=== PATIENT | female | born 1955 | race American Indian/Alaskan Native ===

== ENCOUNTER 2016-12-08 08:50 | Inpatient (IN) | payer MEDICAID ==
[2016-12-08 10:03] LABS: Basophils % (Auto) 0.9 % (0.0-1.8); Eosinophils % (Auto) 3.3 % (0.0-4.3); Hematocrit 40.1 % (30.3-42.9); Hemoglobin 13.2 gm/dl (10.1-14.3); Mean Corpuscular HGB Conc 33 % (30-34); Mean Corpuscular Hemoglobin 29 pg (28-32); Mean Corpuscular Volume 87 fl (79-97); Platelet Count 297 K/mm3 (140-440); Red Cell Distribution Width 14.4 % (13.2-15.2); White Blood Count 6.2 K/mm3 (4.5-11.0)
[2016-12-08 10:19] LABS: Anion Gap 17 mmol/L; Blood Urea Nitrogen 6 mg/dL (7-17); Calcium 8.5 mg/dL (8.4-10.2); Carbon Dioxide 25 mmol/L (22-30); Chloride 102.3 mmol/L (98-107); Glucose 124 mg/dL (65-100); Potassium 3.7 mmol/L (3.6-5.0); Sodium 141 mmol/L (137-145)
[2016-12-08] MEDS ORDERED: NACL 0.9% 1000 ML 1,000 ML ONE (10:20)
[2016-12-08] MEDS ORDERED: ROCEPHIN/NS 1 GM/50 ML 1 GM/50 ML BAG IV ONE ×2 (10:20→10:22)
[2016-12-08] MEDS ORDERED: NACL 0.9% 1000 ML IV ONE (10:22)
[2016-12-08] MEDS ORDERED: PROVENTIL IH ONE (10:22)
[2016-12-08] MEDS ORDERED: ATROVENT IH ONE (10:22)
--- NOTE | 2016-12-08 10:31 | Emergency Department Report ---
HPI - General Chief Complaint: Adult Asthma Time Seen by Provider: 12/08/16 10:15 - HPI HPI: Chief complaint: Shortness of breath and productive cough HPI: Patient is 61-year-old female with a history of asthma, COPD, 1 intubation 2 years ago and history of pneumonia presents with a weeklong history of shortness of breath, wheezing and coughing up green sputum. Questionable fever , patient states she's had some episodes of sweating and chills. Patient continues to smoke intermittently. Patient denies nausea, vomiting or diarrhea. Patient denies chest pain. Patient was given an albuterol treatment , Solu-Medrol 125 mg IV and 2 g of magnesium sulfate IV by EMS prior to arrival. Mode of arrival: EMS Source: Patient, old chart Began: One week ago Duration: Gradually worsening over the last 2 days Context: Patient has been using her nebulizer treatments at home but just continued to get worse so she decided to come to the emergency department Quality: No pain Severity: 0 out of 10 Improved with: Nebulizer Worsened with: Nothing Associated signs and symptoms: See above ED Past Medical Hx - Past Medical History Hx Hypertension: Yes Hx GERD: Yes Hx Asthma: Yes Hx COPD: Yes Additional medical history: HIGH CHOLESTEROL - Social History Smoking Status: Current Some Day Smoker Substance Use Type: None - Medications Home Medications: Home Medications Medication Instructions Recorded Confirmed Last Taken Type Diltiazem Cd [Cardizem CD] 180 mg PO QDAY #30 cap 08/26/15 12/08/16 12/08/16 Rx ALBUTEROL Inhaler [ProAir HFA 2 puff IH QID PRN #1 inhalation 12/16/15 12/08/16 12/08/16 Rx Inhaler] Potassium Chloride [Klor-Con 10] 20 meq PO QDAY 12/16/15 12/08/16 12/08/16 History Budesoni/Formotero 160-4.5(Nf) 2 puff IH BID #1 inha 12/30/15 12/08/16 12/08/16 Rx [Symbicort 160-4.5 (Nf)] ED Review of Systems ROS: Stated complaint: JAVY Other details as noted in HPI ROS Constitutional: No fever ENT: No uri symptoms Cardiovascular: No chest pain Respiratory: See HPI GI: No nausea vomiting or diarrhea : No dysuria frequency or urgency, Skin: No rash Neuro: No focal weakness or numbness Psych: No depression Shawn/lymph: No edema Physical Exam - Physical Exam Vital Signs: Vital Signs 12/08/16 09:03 Temperature 97.7 F Pulse Rate 103 H Respiratory 22 Rate Blood Pressure 159/85 [Left] O2 Sat by Pulse 95 Oximetry Physical Exam: GENERAL: The patient is well-developed well-nourished . Patient with mild respiratory distress and frequent coughing episodes. HEENT: Normocephalic. Atraumatic. Extraocular motions are intact. Patient has moist mucous membranes. NECK: Supple. No meningitic signs are noted. There is no adenopathy noted. CHEST/LUNGS: Bilateral expiratory wheezes and diminished throughout. There is mild to moderate respiratory distress noted. HEART/CARDIOVASCULAR: Regular. There is tachycardia. There is no gallop rub or murmur. ABDOMEN: Abdomen is soft, nontender. Patient has normal bowel sounds. There is no abdominal distention. SKIN: There is no rash. There is no edema. There is no diaphoresis. NEURO: The patient is awake, alert, and oriented. The patient is cooperative. The patient has no focal neurologic deficits. The patient has normal speech. MUSCULOSKELETAL: There is no tenderness or deformity. There is no limitation range of motion. There is no evidence of acute injury. ED Course Vital Signs 12/08/16 09:03 Temperature 97.7 F Pulse Rate 103 H Respiratory 22 Rate Blood Pressure 159/85 [Left] O2 Sat by Pulse 95 Oximetry - Reevaluation(s) Reevaluation #1: 12/08/16 10:33 Patient will be given an hour-long nebulizer treatment and a liter of normal saline along with 1 g of IV Rocephin. ED Medical Decision Making - Lab Data Result diagrams: 12/08/16 09:56 12/08/16 09:56 Laboratory Tests 12/08/16 09:56 Lactic Acid 2.5 H* - Radiology Data interpreted by me: Chest x-ray consistent with COPD. Critical care attestation.: If time is entered above; I have spent that time in minutes in the direct care of this critically ill patient, excluding procedure time. ED Disposition Clinical Impression: Acute exacerbation of COPD with asthma Acute bronchitis Qualifiers: Bronchitis organism: unspecified organism Qualified Code(s): J20.9 - Acute bronchitis, unspecified Disposition: OP ADMITTED IP TO THIS HOSP Is pt being admited?: Yes Does the pt Need Aspirin: Yes Condition: Fair Instructions: Chronic Obstructive Pulmonary Disease (ED), Acute Bronchitis (ED) Referrals: PRIMARY CARE,MD [Primary Care Provider] - 3-5 Days Time of Disposition: 11:39 (admit to the hospitalist)
--- NOTE | 2016-12-08 11:07 | Admit Criteria Form ---
Admission Criteria Documentation: COPD Clinical Indications for Admission to Inpatient Care (Place 'X' for any and all applicable criteria): Admission is indicated for ANY ONE of the following (1)(2)(3): [X ]I. Acute exacerbation by high-risk comorbidity (e.g., pneumonia, dysrhythmia, heart failure, pleural effusion, pneumothorax) or severe underlying COPD (e.g., steroid dependent) [ X]II. Inpatient admission required rather than observation care (see Chronic Obstructive Pulmonary Disease: Observation Care) because of ANY ONE of the following: [X ]a) New or pre-existing signs or symptoms of COPD (eg, dyspnea or Tachypnea at rest or with minimal activity) that persist despite outpatient and observation care treatment [ ]b) New-onset hypoxemia (room air SaO2 less than 90%, PO2 less than 60 mm Hg (8.0 kPa)) that persists despite outpatient and observation care treatment [ ]c) Worsening of pre-existing hypoxemia (eg, new or increased requirement for supplemental oxygen to maintain oxygenation at baseline level) that persists despite outpatient and observation care treatment, with oxygen treatment needs performable only in acute inpatient setting [ ]d) Hypercarbia (PCO2 greater than 40 mm Hg (5.3 kPa))-induced respiratory acidosis (pH less than 7.35) that persists despite outpatient and observation care treatment [ ]e) Supplemental oxygen or respiratory treatments for over 24 hours that are performable only in acute inpatient setting [ ]f) Chest tube placement with active evacuation (e.g., suction, drainage) (5) [ ]g) Other condition, treatment or monitoring requiring inpatient admission [ ]III. Planned invasive surgical or diagnostic procedures requiring acute- care hospitalization [ ]IV. Acute respiratory failure (e.g., uncompensated hypercarbia, severe hypoxemia) [ ]V. Severe comorbid condition (e.g., severe steroid myopathy, acute vertebral fracture) that has acutely worsened pulmonary function [ ]. Confusion state, lethargy, obtundation, stupor or coma Extended stay beyond goal length of stay may be needed for (31)(32): [ ]a ) Respiratory Failure. [ ]b) Severe or persisting hypoxemia or hypercarbia [ ]c) Severe or persistent dyspnea [ ]d) Comorbidities (e.g. chronic heart failure, atrial fibrillation with rapid response, pneumonia) [ ]e) Malnutrition The original [facility] content created by [facility] has been revised. The portions of the content which have been revised are identified through the use of italic text or in bold, and [facility] has neither reviewed nor approved the modified material. All other unmodified content is copyright [facility]. Please see references footnoted in the original [facility] edition 2016 Admission Criteria Met: Yes
--- NOTE | 2016-12-08 11:30 | XRay Report ---
CHEST 2 VIEWS: INDICATION: Shortness of breath. COMPARISON: 12/28/2015 FINDINGS: Frontal and lateral chest radiographs, 3 images, somewhat limited due to motion, though again demonstrate normal cardiomediastinal silhouette and grossly clear, well-expanded lungs. No large pleural effusions or CHF. Slight aortic knob calcifications. Demineralized bones with multilevel thoracic spondylosis. CONCLUSION: No definite acute chest process or significant interval change on this technically limited exam, as described. Please correlate. Thank you for the opportunity to participate in this patient's care.
[2016-12-08] MEDS ORDERED: ASPIRIN PO ONE (11:50)
[2016-12-08] MEDS ORDERED: TYLENOL PO PRN (11:59)
[2016-12-08] MEDS ORDERED: HABITROL TD ONE (12:10)
[2016-12-08] MEDS ORDERED: PROVENTIL IH PRN (12:10)
--- NOTE | 2016-12-08 12:10 | History and Physical Report ---
History of Present Illness Date of examination: 12/08/16 Chief complaint: Sob History of present illness: Patient is a 61 you woman with a history of copd, tobacco dependancy, hthn, dlp and GERD who presents with severe constant worsening progressive sob without aggravating or relieving factors associated with wheezing, worsening greenish yellow productive cough. Her symptoms started 2 days ago, now she has sob at rest. She denies cp, severe headaches, n/v abdominal pains, fevers or chills. Her nebulizer wasn't helping. Her PCP is Dr. Hahn and Injector Assembler is Dr. Trejo. Past History Past Medical History: other (as hpi) Past Surgical History: No surgical history, Other Social history: , smoking, full code. denies: alcohol abuse, prescription drug abuse, IV drug use Family history: no significant family history (she denies any lung cancer, diabetes, hypertension) Medications and Allergies Allergies Allergy/AdvReac Type Severity Reaction Status Date / Time No Known Allergies Allergy Verified 12/16/15 05:40 Home Medications Medication Instructions Recorded Confirmed Last Taken Type Diltiazem Cd [Cardizem CD] 180 mg PO QDAY #30 cap 08/26/15 12/08/16 12/08/16 Rx ALBUTEROL Inhaler [ProAir HFA 2 puff IH QID PRN #1 inhalation 12/16/15 12/08/16 12/08/16 Rx Inhaler] Potassium Chloride [Klor-Con 10] 20 meq PO QDAY 12/16/15 12/08/16 12/08/16 History Budesoni/Formotero 160-4.5(Nf) 2 puff IH BID #1 inha 12/30/15 12/08/16 12/08/16 Rx [Symbicort 160-4.5 (Nf)] Active Meds: Active Medications Acetaminophen (Tylenol) 650 mg PO Q6H PRN PRN Reason: Non Cardiac Pain or Temp>100.5 Acetaminophen/Hydrocodone Bitart ([address] 5/325) 1 each PO Q4H PRN PRN Reason: Pain, Moderate (4-6) Enoxaparin Sodium (Lovenox) 40 mg SUB-Q QDAY [facility] Sodium Chloride (Nacl 0.45% 1000 Ml) mls @ 100 mls/hr IV DIRECT [facility] Azithromycin 500 mg/ Sodium (Chloride) 250 mls @ 250 mls/hr IV Q24HR [facility] Ceftriaxone Sodium (Rocephin/Ns 1 Gm/50 Ml) mls @ 100 mls/hr IV Q24HR [facility] PRN Reason: Protocol Methylprednisolone Sodium Succinate (Solu-Medrol) 40 mg IV Q8HR [facility] Pantoprazole Sodium (Protonix) 40 mg PO QDAY [facility] Zolpidem Tartrate (Ambien) 5 mg PO QHS PRN PRN Reason: Sleep Review of Systems All systems: negative (as HPI and all other ROS reviewed and negative.) Exam - Physical Exam Narrative exam: GEN: WDWN, NAD, AWAKE, ALERT, ORIENTATED 3 HEENT: NCAT, PERRL, EOMI, OP CLEAR NECK: SUPPLE, NO THYROMEGALY, NO JVD, NO LAD CVS: Tachycardic, NORMAL S1S2 LUNGS/CHEST: Bilateral rhonchi with wheezing NORMAL CHEST EXPANSION B, diminished AIR ENTRY B, reduced breath sounds ABD: SOFT NTND, GBS, NO REBOUND OR GUARDING EXT/SKIN: NO SIGNIFICANT EDEMA OR RASH MSK: FROM X 4 EXTREMITIES NEURO: CN 2-12 GROSSLY INTACT, NO FOCAL DEFICITS PSY: CALM - Constitutional Vitals: Temp Pulse Resp BP Pulse Ox 97.7 F 90 20 159/85 94 12/08/16 09:03 12/08/16 10:42 12/08/16 10:42 12/08/16 10:31 12/08/16 10:31 Results - Labs CBC & Chem 7: 12/08/16 09:56 12/08/16 09:56 Labs: Abnormal lab results 12/08/16 12/08/16 12/08/16 Range/Units 09:56 09:56 09:56 Lymph # 0.8 L (1.2-5.4) K/mm3 Seg Neutrophils % 79.2 H (40.0-70.0) % BUN 6 L (7-17) mg/dL Creatinine 0.6 L (0.7-1.2) mg/dL Glucose 124 H (65-100) mg/dL Lactic Acid 2.5 H* (0.7-2.0) mmol/L - Imaging and Cardiology Chest x-ray: report reviewed Assessment and Plan Patient is a 61 you woman with a history of copd, tobacco dependancy, hthn, dlp and GERD who presents with severe constant worsening progressive sob without aggravating or relieving factors associated with wheezing, worsening greenish yellow productive cough. Her symptoms started 2 days ago, now she has sob at rest. She denies cp, severe headaches, n/v abdominal pains, fevers or chills. Her nebulizer wasn't helping. Her PCP is Dr. Hahn and Injector Assembler is Dr. Trejo. 1. Acute exacerbation COPD with acute on chronic aspiration pneumonitis: Treat with IV antibiotics, IV steroids, nebs, consult her research associate quality control qc 2. Sepsis: Blood cultures, IV fluids and IV antibiotics 3. Tobacco dependency: Controls Design Engineer on stopping, give nicotine patch 4. Hypertension, chronic and worsening: treat the sob 5. DVT prophylaxis: SCDs and subcutaneous Lovenox Full code Disposition: Inpatient care
[2016-12-08] MEDS ORDERED: ECOTRIN PO ONE (15:08)
[2016-12-08] MEDS: DUONEB 0.5 MG-3 MG/3 ML SOLN IH SCH ×2 (16:44→20:45)
[2016-12-08] MEDS: NACL 0.45% 1000 ML 1,000 ML IV SCH (16:55)
[2016-12-08] MEDS: NORCO 5/325 PO PRN (22:14)
[2016-12-08] MEDS: AMBIEN PO PRN (22:16)
[2016-12-09 05:42] LABS: Hematocrit 37.8 % (30.3-42.9); Hemoglobin 12.3 gm/dl (10.1-14.3); Mean Corpuscular HGB Conc 33 % (30-34); Mean Corpuscular Hemoglobin 28 pg (28-32); Mean Corpuscular Volume 86 fl (79-97); Platelet Count 283 K/mm3 (140-440); Red Cell Distribution Width 14.4 % (13.2-15.2); White Blood Count 10.4 K/mm3 (4.5-11.0)
[2016-12-09 05:50] LABS: Anion Gap 16 mmol/L; BUN/Creatinine Ratio 13.33; Blood Urea Nitrogen 8 mg/dL (7-17); Calcium 8.7 mg/dL (8.4-10.2); Carbon Dioxide 23 mmol/L (22-30); Chloride 102.4 mmol/L (98-107); Glucose 141 mg/dL (65-100); Potassium 4.2 mmol/L (3.6-5.0); Sodium 137 mmol/L (137-145)
[2016-12-09] MEDS: PULMICORT IH SCH ×2 (09:25→20:40)
[2016-12-09] MEDS: BROVANA NEBU IH SCH ×2 (09:25→20:42)
[2016-12-09] MEDS: DUONEB 0.5 MG-3 MG/3 ML SOLN IH SCH ×4 (09:25→20:42)
--- NOTE | 2016-12-09 09:54 | Progress Note ---
Assessment and Plan Assessment and plan: Acute respiratory failure secondary to COPD exacerbation. Continue supplemental oxygen. Pulmonology following Copd exacerbation. Solu-Medrol IV every 8 hours, DuoNeb. Hypertension. She is on Cardizem CD. Smoking. I discussed with her importance of quitting smoking. Nicotine patch daily Obesity. I discussed with her importance of losing weight. Full CODE STATUS History Interval history: Less shortness of breath, Cough improving, No chest pain Hospitalist Physical - Constitutional Vitals: Temp Pulse Resp BP Pulse Ox 97.7 F 76 16 169/73 94 12/09/16 08:00 12/09/16 09:25 12/09/16 09:25 12/09/16 08:00 12/09/16 08:00 General appearance: Present: no acute distress - EENT Eyes: Present: PERRL ENT: hearing intact - Neck Neck: Present: supple, normal ROM - Respiratory Respiratory effort: normal Respiratory: bilateral: diminished, rhonchi, wheezing - Cardiovascular Rhythm: regular Heart Sounds: Present: S1 & S2 (S1-S2 regular, no murmurs rubs or gallops) - Extremities Extremities: no ischemia, No edema, normal temperature, normal color - Abdominal General gastrointestinal: soft, non-tender, non-distended, normal bowel sounds - Integumentary Integumentary: Present: clear, warm, dry - Psychiatric Psychiatric: appropriate mood/affect - Neurologic Neurologic: moves all extremities, other (AAO x 3) Results - Labs CBC & Chem 7: 12/09/16 05:12 12/09/16 05:12 Labs: Laboratory Last Values WBC 10.4 K/mm3 (4.5-11.0) 12/09/16 05:12 RBC 4.40 M/mm3 (3.65-5.03) 12/09/16 05:12 Hgb 12.3 gm/dl (10.1-14.3) 12/09/16 05:12 Hct 37.8 % (30.3-42.9) 12/09/16 05:12 MCV 86 fl (79-97) 12/09/16 05:12 MCH 28 pg (28-32) 12/09/16 05:12 MCHC 33 % (30-34) 12/09/16 05:12 RDW 14.4 % (13.2-15.2) 12/09/16 05:12 Plt Count 283 K/mm3 (140-440) 12/09/16 05:12 Lymph % (Auto) 13.5 % (13.4-35.0) 12/08/16 09:56 Orange % (Auto) 3.1 % (0.0-7.3) 12/08/16 09:56 Eos % (Auto) 3.3 % (0.0-4.3) 12/08/16 09:56 Baso % (Auto) 0.9 % (0.0-1.8) 12/08/16 09:56 Lymph # 0.8 K/mm3 (1.2-5.4) L 12/08/16 09:56 Orange # 0.2 K/mm3 (0.0-0.8) 12/08/16 09:56 Eos # 0.2 K/mm3 (0.0-0.4) 12/08/16 09:56 Baso # 0.1 K/mm3 (0.0-0.1) 12/08/16 09:56 Seg Neutrophils % 79.2 % (40.0-70.0) H 12/08/16 09:56 Seg Neutrophils # 4.9 K/mm3 (1.8-7.7) 12/08/16 09:56 Sodium 137 mmol/L (137-145) 12/09/16 05:12 Potassium 4.2 mmol/L (3.6-5.0) 12/09/16 05:12 Chloride 102.4 mmol/L (98-107) 12/09/16 05:12 Carbon Dioxide 23 mmol/L (22-30) 12/09/16 05:12 Anion Gap 16 mmol/L 12/09/16 05:12 BUN 8 mg/dL (7-17) 12/09/16 05:12 Creatinine 0.6 mg/dL (0.7-1.2) L 12/09/16 05:12 Estimated GFR > 60 ml/min 12/09/16 05:12 BUN/Creatinine Ratio 13.33 % 12/09/16 05:12 Glucose 141 mg/dL (65-100) H 12/09/16 05:12 Lactic Acid 2.5 mmol/L (0.7-2.0) H* 12/08/16 09:56 Calcium 8.7 mg/dL (8.4-10.2) 12/09/16 05:12
[2016-12-09] MEDS ORDERED: NON-FORMULARY (Budesoni/Formotero 160-4.5(Nf) 2 PUFF) IH SCH (10:00)
[2016-12-09] MEDS ORDERED: NON-FORMULARY (Potassium Chloride [Klor-Con 10] 20 MEQ) PO SCH (10:00)
[2016-12-09] MEDS ORDERED: ZITHROMAX 500 MG in NACL 0.9% 250ML 250 ML IV SCH (10:00)
[2016-12-09] MEDS ORDERED: ROCEPHIN/NS 1 GM/50 ML 1 GM/50 ML BAG IV SCH (10:00)
[2016-12-09] MEDS: CARDIZEM CD PO SCH (10:30)
[2016-12-09] MEDS: PROTONIX PO SCH (10:30)
[2016-12-09] MEDS: K-DUR PO SCH (11:13)
[2016-12-09] MEDS ORDERED: BENADRYL IV PRN (13:10)
--- NOTE | 2016-12-09 16:02 | Consultation ---
History of Present Illness Consult date: 12/09/16 Requesting physician: NIC RODRIGUEZ Reason for consult: COPD History of present illness: 61 y/o woman, with known obstructive lung disease, followed by Dr. Trejo, admitted with exacerbation, acute. Per patient, went to work and was exposed to an individual with a URI. A few days later she began coughing up clear phelgm with continued wheezing. Currently undergoing neb treatment now. Per patient feels better. No family at bedside Past History Past Medical History: other (as hpi) Past Surgical History: No surgical history, Other Social history: , smoking, full code. denies: alcohol abuse, prescription drug abuse, IV drug use Family history: no significant family history (she denies any lung cancer, diabetes, hypertension) Medications and Allergies Allergies Allergy/AdvReac Type Severity Reaction Status Date / Time azithromycin [From Zithromax] Allergy Shortness Verified 12/09/16 14:19 of Breath Home Medications Medication Instructions Recorded Confirmed Last Taken Type Diltiazem Cd [Cardizem CD] 180 mg PO QDAY #30 cap 08/26/15 12/08/16 12/08/16 Rx ALBUTEROL Inhaler [ProAir HFA 2 puff IH QID PRN #1 inhalation 12/16/15 12/08/16 12/08/16 Rx Inhaler] Potassium Chloride [Klor-Con 10] 20 meq PO QDAY 12/16/15 12/08/16 12/08/16 History Budesoni/Formotero 160-4.5(Nf) 2 puff IH BID #1 inha 12/30/15 12/08/16 12/08/16 Rx [Symbicort 160-4.5 (Nf)] Active Meds: Active Medications Acetaminophen (Tylenol) 650 mg PO Q6H PRN PRN Reason: Non Cardiac Pain or Temp>100.5 Acetaminophen/Hydrocodone Bitart ([place] 5/325) 1 each PO Q4H PRN PRN Reason: Pain, Moderate (4-6) Last Admin: 12/08/16 22:14 Dose: 1 each Albuterol (Proventil) 2.5 mg IH Q4HRT PRN PRN Reason: Shortness Of Breath Albuterol/Ipratropium (Duoneb 0.5 Mg-3 Mg/3 Ml Soln) 1 ampul IH QIDRT [facility] Last Admin: 12/09/16 15:54 Dose: 1 ampul Arformoterol Tartrate (Brovana Nebu) 15 mcg IH Q12HRT [facility] Last Admin: 12/09/16 09:25 Dose: Not Given Budesonide (Pulmicort) 1 mg IH Q12HRT [facility] Last Admin: 12/09/16 09:25 Dose: Not Given Diltiazem HCl (Cardizem Cd) 180 mg PO QDAY [facility] Last Admin: 12/09/16 10:30 Dose: 180 mg Diphenhydramine HCl (Benadryl) 25 mg IV Q6H PRN PRN Reason: Itching Last Admin: 12/09/16 13:18 Dose: 25 mg Enoxaparin Sodium (Lovenox) 40 mg SUB-Q QDAY [facility] Sodium Chloride (Nacl 0.45% 1000 Ml) 1,000 mls @ 100 mls/hr IV DIRECT [facility] Last Admin: 12/08/16 16:55 Dose: 100 mls/hr Methylprednisolone Sodium Succinate (Solu-Medrol) 40 mg IV Q8HR [facility] Last Admin: 12/09/16 13:47 Dose: 40 mg Pantoprazole Sodium (Protonix) 40 mg PO QDAY [facility] Last Admin: 12/09/16 10:30 Dose: 40 mg Potassium Chloride (K-Dur) 20 meq PO QDAY [facility] Last Admin: 12/09/16 11:13 Dose: 20 meq Zolpidem Tartrate (Ambien) 5 mg PO QHS PRN PRN Reason: Sleep Last Admin: 12/08/16 22:16 Dose: 5 mg Physical Examination Vital signs: Vital Signs Temp Pulse Resp BP Pulse Ox 97.7 F 103 H 22 159/85 95 12/08/16 09:03 12/08/16 09:03 12/08/16 09:03 12/08/16 09:03 12/08/16 09:03 General appearance: no acute distress, alert Eyes: non-icteric ENT: oropharynx moist Effort: normal Ascultation: Bilateral: wheezes (more predominant in lower lung zones) Percussion: Bilateral: not dull Tactile fremitus: Bilateral: normal Cardiovascular: regular rate and rhythm Results - Laboratory Findings CBC and BMP: 12/09/16 05:12 12/09/16 05:12 Abnormal lab findings: Abnormal Labs 12/09/16 05:12 Creatinine 0.6 L Glucose 141 H - Diagnostic Findings Chest x-ray: image reviewed (clear cxr, evidence of airtrapping/hyperinflation, consistent with obstructive lung disease) Assessment and Plan 61 y/o female with acute exacerbation of obstructive lung disease. 1. Agree with IV steroids 2. Continue pulmicort and brovana 3. PRN neb treatments as well 4. Will continue to follow with you, hopeful discharge in the next 24-48 hours.
[2016-12-09] MEDS ORDERED: MILK OF MAGNESIA PO PRN (19:03)
[2016-12-09] MEDS: NACL 0.45% 1000 ML 1,000 ML IV SCH (20:36)
[2016-12-09] MEDS: NORCO 5/325 PO PRN (20:36)
[2016-12-09] MEDS: AMBIEN PO PRN (22:02)
[2016-12-09] MEDS: LOVENOX SUB-Q SCH (22:02)
[2016-12-10] MEDS: NACL 0.45% 1000 ML 1,000 ML IV SCH (06:25)
[2016-12-10] MEDS: DUONEB 0.5 MG-3 MG/3 ML SOLN IH SCH ×2 (08:36→16:24)
[2016-12-10] MEDS: PULMICORT IH SCH (08:44)
--- NOTE | 2016-12-10 10:38 | Discharge Summary ---
Providers - Providers Date of Admission: 12/08/16 11:57 Date of discharge: 12/10/16 Attending physician: VASU GUADALUPE 12/08/16 12:01 Consult to Physician [CONS] Routine Consulting Provider: SKINNY DAVIDSON Reason For Exam: copd ex, pt known to you Place consult to:: Maya FLORES Notified:: y Was contact made?: Yes If yes, spoke with:: storm office Time called:: 12:20 Primary care physician: METER MAKER Hospitalization Condition: Good Hospital course: Patient is 61-year-old with history of COPD, hypertension. She presented with shortness of breath. She was diagnosed with COPD exacerbation. And was admitted for further management. She was put on Solu-Medrol and DuoNeb. Machine Brusher was consulted and she was evaluated. She improved over the next 2 days. She was evaluated on 12/10/2016. Shortness of breath had resolved , so was stable and discharged home to follow as an outpatient. Total time spent on discharge 32 minutes Disposition: DISCHARGED TO HOME OR SELFCARE - Discharge Diagnoses (1) Acute respiratory failure Status: Acute Qualifiers: Respiratory failure complication: hypoxia Qualified Code(s): J96.01 - Acute respiratory failure with hypoxia (2) COPD with acute exacerbation Status: Acute (3) HTN (hypertension) Status: Chronic Qualifiers: Hypertension type: H (4) Obesity (BMI 30-39.9) Status: Chronic Core Measure Documentation - Palliative Care Palliative Care/ Comfort Measures: Not Applicable - Core Measures Any of the following diagnoses?: none Exam - Constitutional Vitals: Temp Pulse Resp BP Pulse Ox 97.8 F 84 20 161/93 96 12/10/16 08:00 12/10/16 08:00 12/10/16 08:00 12/10/16 08:00 12/10/16 08:00 Plan Activity: no restrictions Diet: low fat, low cholesterol, low salt Special Instructions: smoking cessation Additional Instructions: 1.Follow up with PCP in 1 week. 2.Follow up with Dr. Trejo in 1 week Follow up with: PRIMARY CAREMD [Primary Care Provider] - 3-5 Days Prescriptions: ALBUTEROL Inhaler [ProAir HFA Inhaler] 2 puff IH QID PRN #1 inhalation PRN Reason: Shortness Of Breath Hydralazine HCl [Apresoline TAB] 50 mg PO Q8HR #90 tab Nicotine [Habitrol] 14 mg TD DAILY #30 patch
[2016-12-10] MEDS: LOVENOX SUB-Q SCH (11:16)
[2016-12-10] MEDS: K-DUR PO SCH (11:16)
[2016-12-10] MEDS: PROTONIX PO SCH (11:16)
[2016-12-10] MEDS: CARDIZEM CD PO SCH (11:17)
[2016-12-10 11:18] VITALS: BP 160/90
--- NOTE | 2016-12-10 11:32 | Progress Note ---
Assessment and Plan 61 y/o female with acute exacerbation of obstructive lung disease. 1. Prednisone taper at discharge 2. Resume home medication regimen 3. No objection to discharge from pulmonary standpoint Subjective Date of service: 12/10/16 Interval history: Patient improved. Feels better. Going home today. Already dressed. Objective Vital Signs - 12hr 12/10/16 12/10/16 12/10/16 00:19 08:00 11:17 Temperature 97.9 F 97.8 F Pulse Rate 84 Pulse Rate [ 76 84 Right Radial] Respiratory 20 20 Rate Blood Pressure 160/90 Blood Pressure 145/1 161/93 [Left Arm] O2 Sat by Pulse 94 96 Oximetry Constitutional: no acute distress, alert Eyes: non-icteric ENT: oropharynx moist Effort: normal Ascultation: Bilateral: wheezes (more predominant in lower lung zones) Percussion: Bilateral: not dull Tactile fremitus: Bilateral: normal Cardiovascular: regular rate and rhythm CBC and BMP: 12/09/16 05:12 12/09/16 05:12 Abnormal lab findings: Abnormal Labs 12/09/16 05:12 Creatinine 0.6 L Glucose 141 H
[2016-12-10] MEDS: BROVANA NEBU IH SCH (16:24)
== END 2016-12-10 12:50 | disposition home or self-care (01) | DRG 871 ==
LOC: ED 08:50 → 3A 11:57
PROVIDERS: ADMIT Internal Medicine; ATTEND Internal Medicine
DX: A41.9 Sepsis, unspecified organism (principal); J69.0 Pneumonitis due to inhalation of food and vomit; J96.01 Acute respiratory failure with hypoxia; J44.1 Chronic obstructive pulmonary disease with (acute) exacerbation; I10 Essential (primary) hypertension; E66.9 Obesity, unspecified; K21.9 Gastro-esophageal reflux disease without esophagitis; F17.200 Nicotine dependence, unspecified, uncomplicated; Z68.35 Body mass index [BMI] 35.0-35.9, adult; Z71.6 Tobacco abuse counseling
CPT/HCPCS: 36415; 71020; 80048; 82140; 85025; 85027; 87040; 94640; 96365; 99406; J0456; J0696; J1200; J1650; J2920; J7030; J7050

== ENCOUNTER 2017-06-06 09:16 | Outpatient (CLI) | payer MEDICAID ==
--- NOTE | 2017-06-06 10:46 | Mammography Report ---
Screening mammogram: No recent prior exams. Prior left breast surgery for benign findings. A scar marker is placed with mild distortion beneath the scar marker in the anterior superior left breast. The remainder of the breast pattern is heterogeneous, symmetric, and otherwise unremarkable for any significant findings. CAD used. Impression: Benign pattern. Recommendation: Annual mammogram followup. BI-RADS CATEGORY: 1 = Negative ACR BI-RADS MAMMOGRAPHIC CODES: 0 = Needs additional imaging evaluation; 1 = Negative; 2 = Benign; 3 = Probably benign; 4 = Suspicious; 5 = Malignant; 6 = Known biopsy-proven malignancy COMMENT: 1. Dense breast tissue, i.e., adenosis, fibrocystic changes, etc., may obscure an underlying neoplasm. 2. Approximately 10% of cancers are not detected with mammography. 3. A negative mammography report should not delay biopsy if a clinically suspicious mass is present.
== END 2017-06-06 09:17 | disposition home or self-care (01) ==
LOC: MAMMO 09:16
PROVIDERS: ATTEND Internal Medicine
DX: Z12.31 Encounter for screening mammogram for malignant neoplasm of breast (principal); I10 Essential (primary) hypertension; E78.00 Pure hypercholesterolemia, unspecified; J44.9 Chronic obstructive pulmonary disease, unspecified; J45.909 Unspecified asthma, uncomplicated; F32.9 Major depressive disorder, single episode, unspecified; F17.200 Nicotine dependence, unspecified, uncomplicated
CPT/HCPCS: 77067; G0202

== ENCOUNTER 2017-09-20 10:27 | Day surgery (SDC) | payer MEDICAID ==
[2017-09-20] MEDS ORDERED: ANCEF/STERILE WATER 2 GM/20 ML IV NR (13:00)
--- NOTE | 2017-09-20 13:10 | Anesthesia Consultation ---
Anesthesia Consult and Med Hx Date of service: 09/20/17 - Airway Anesthetic Teeth Evaluation: Poor (multiple missing teeth) ROM Head & Neck: Adequate Mental/Hyoid Distance: Adequate Mallampati Class: Class II Intubation Access Assessment: Probably Good - Pre-Operative Health Status ASA Pre-Surgery Classification: ASA3 Proposed Anesthetic Plan: General - Pulmonary Hx Smoking: Yes (for over 30 years) Hx Asthma: Yes Hx Respiratory Symptoms: No SOB: Yes COPD: Yes (uses inhalers daily) Hx Pneumonia: No Hx Sleep Apnea: No - Cardiovascular System Hx Hypertension: Yes (15 years) Hx Coronary Artery Disease: No (high cholesterol) Hx Heart Attack/AMI: No Hx Cardia Arrhythmia: Yes (h/o SVT) - Central Nervous System CVA: No Hx Psychiatric Problems: No - Gastrointestinal Hx Gastroesophageal Reflux Disease: No - Endocrine Hx Renal Disease: No Hx End Stage Renal Disease: No Hx Non-Insulin Dependent Diabetes: No Hx Thyroid Disease: No - Other Systems Hx Alcohol Use: Yes (occa) Hx Substance Use: No Hx Cancer: No Hx Obesity: Yes (BMI 35.5)
--- NOTE | 2017-09-20 13:12 | Anesthesia Day of Surgery ---
Anesthesia Day of Surgery - Day of Surgery Patient Examined: Yes Patient H&P Reviewed: Yes Patient is NPO: Yes
[2017-09-20] MEDS ORDERED: PROAIR IH NR (13:15)
[2017-09-20 13:35] LABS: Hematocrit 41.9 % (30.3-42.9); Hemoglobin 13.5 gm/dl (10.1-14.3)
[2017-09-20] MEDS ORDERED: MARCAINE 0.5% 30 ML INFILTRATI ONE (13:59)
[2017-09-20] MEDS ORDERED: PEPCID IV NR (14:00)
[2017-09-20] MEDS ORDERED: ZOFRAN ONE ×2 (14:00→17:33)
[2017-09-20] MEDS ORDERED: ROBINUL ONE ×2 (14:00)
[2017-09-20] MEDS ORDERED: XYLOCAINE MPF 2% ONE (14:00)
[2017-09-20] MEDS ORDERED: VERSED IV NR (14:00)
[2017-09-20] MEDS ORDERED: LACTATED RINGERS 1,000 ML IV SCH (14:00)
[2017-09-20] MEDS ORDERED: ZEMURON IV ONE (14:00)
[2017-09-20] MEDS ORDERED: NEOSTIGMINE ONE (14:00)
[2017-09-20] MEDS ORDERED: DECADRON ONE (14:00)
[2017-09-20] MEDS ORDERED: SUBLIMAZE ONE (14:01)
[2017-09-20] MEDS ORDERED: DIPRIVAN 10 MG/ML IV ONE ×2 (14:01→15:15)
[2017-09-20] MEDS ORDERED: DILAUDID ONE (14:42)
[2017-09-20] MEDS ORDERED: NACL 0.9% IR ONE (14:54)
[2017-09-20] MEDS ORDERED: MARCAINE 0.5% INFILTRATI ONE (14:54)
[2017-09-20] MEDS ORDERED: DEMEROL IV PRN (16:15)
[2017-09-20] MEDS ORDERED: ZOFRAN IV PRN (16:15)
[2017-09-20] MEDS ORDERED: NORCO 5/325 PO PRN (16:15)
[2017-09-20] MEDS: DILAUDID IV PRN ×2 (16:20→16:30)
[2017-09-20] MEDS ORDERED: DEMEROL ONE (16:37)
[2017-09-20 21:39] VITALS: BP 125/65
--- NOTE | 2017-09-20 21:50 | Operative Report ---
PREOPERATIVE DIAGNOSIS: Large epigastric hernia, incarcerated. POSTOPERATIVE DIAGNOSIS: Large epigastric hernia, incarcerated with omentum. SURGERY: Diagnostic laparoscopy and removal of incarcerated omentum and repair of hernia using for that purpose 20 x 10 cm graft. ANESTHESIA: General. BLOOD LOSS: Minimal. FINDINGS: This patient had a defect of a good 4 x 4 cm. This ____ created hernial sac with omentum stuck in it. We were able to remove this slowly having good hemostasis using electrocautery. Then, I went ahead and put a patch for that purpose with a nonreactive site on the abdominal organs. Blood loss minimal. We took pictures of the hernial sac as well as the herniated omentum. DESCRIPTION OF PROCEDURE: With the patient in supine position, prepped and draped in usual fashion. I made a small incision in the right mid upper abdomen and another one in the right mid lower abdomen. With the Veress needle, I was able to insufflate the abdominal cavity with CO2 pressure of 15 for which #5 trocar was inserted in the first wound and then at second one with #5 camera, I was able to see the area. We could see the omentum stuck within the hernial sac as we need to pursue that and slowly dissecting the omentum away from the hernial sac all the way. We were very much satisfied. We had good hemostasis using electrocautery. After that maneuvering, I went ahead and a patch was used in the usual fashion with 2 stay sutures for that 3-0 Vicryl through the fascia like a U-shaped type of sutures on the fascia and then all around we took 2 rows of toni, endoclipped in the usual fashion. We were well satisfied. Then, the abdominal cavity was deflated, closing the fascia with the use of 0 Vicryl after removing the sac, and the skin with 4-0 Vicryl and the bandage. The patient was then transferred to the recovery room in good condition. JOB# [id number] JUANA/CHAY
== END 2017-09-20 19:30 | disposition home or self-care (01) ==
LOC: OR 10:27
PROVIDERS: ATTEND Surgery
DX: K43.6 Other and unspecified ventral hernia with obstruction, without gangrene (principal); I10 Essential (primary) hypertension; E78.00 Pure hypercholesterolemia, unspecified; F17.200 Nicotine dependence, unspecified, uncomplicated; K21.9 Gastro-esophageal reflux disease without esophagitis; M19.90 Unspecified osteoarthritis, unspecified site; J44.9 Chronic obstructive pulmonary disease, unspecified
CPT/HCPCS: 36415; 49653; 85014; 85018; 88302; C1726; C1781; J0690; J1100; J1170; J2175; J2250; J2405; J2704; J2710; J3010; J7120

== ENCOUNTER 2017-12-14 11:11 | Outpatient (CLI) | payer MEDICAID ==
--- NOTE | 2017-12-14 16:53 | XRay Report ---
FINAL REPORT PROCEDURE: XR KNEE 3V RT TECHNIQUE: Three views of the right knee are submitted. HISTORY: OSTEOARTHRITIS OF RIGHT KNEE COMPARISON: None FINDINGS: Tricompartmental osteoarthritis is present worst moderate of the medial joint compartment and patellofemoral joint. The there is a small to moderately sized suprapatellar effusion. There is no evident fracture or dislocation. There is no osteochondral defect or intra-articular loose body. IMPRESSION: Osteoarthritis. Suprapatellar effusion.
== END 2017-12-14 11:12 | disposition home or self-care (01) ==
LOC: XRAY 11:11
PROVIDERS: ATTEND Internal Medicine
DX: M17.11 Unilateral primary osteoarthritis, right knee (principal)